=== PATIENT | female | born 1970 | race Caucasian/White ===

== ENCOUNTER 2019-01-03 12:42 | Emergency (ER) | payer OTHER ==
[~2019-01-03] VITALS: Ht 157.5 cm; Wt 125.0 kg
[~2019-01-03 12:42] MED LIST: GLIP5TAB11 PO; MULT1TAB66 PO; PARO-37 PO; PRAV20TA4 PO
[2019-01-03] MEDS ORDERED: METF-960 PO (13:13)
[2019-01-03] MEDS ORDERED: SPIR25 PO (13:13)
[2019-01-03] MEDS ORDERED: INSLAN SQ (13:13)
[2019-01-03] MEDS ORDERED: BUME1TAB17 PO (13:13)
[2019-01-03 13:20] LABS: GLUCOSE,POINT OF CARE 337 MG/DL (70-110)
[2019-01-03] MEDS ORDERED: ALBUTEROL SULFATE 2.5 MG/0.5 ML NEB SOLUTION NEB ONE ×2 (13:45→16:00)
[2019-01-03] MEDS ORDERED: IPRATROPIUM BROMIDE 0.5 MG/2.5 ML NEB SOLUTION NEB ONE (13:45)
[2019-01-03] MEDS ORDERED: PredniSONE 20 MG TABLET PO ONE (16:00)
[2019-01-03] MEDS ORDERED: ALBUTEROL SULFATE HFA 90 MCG/PUFF 8 GM INHALER IH ONE (16:45)
[2019-01-03 16:56] VITALS: BP 133/66
[2019-01-03 17:05] LABS: GLUCOSE,POINT OF CARE 209 MG/DL (70-110)
== END 2019-01-03 17:00 | disposition home or self-care (01) ==
LOC: EMS 12:42
DX: J45.909 Unspecified asthma, uncomplicated (principal); F17.210 Nicotine dependence, cigarettes, uncomplicated; F10.21 Alcohol dependence, in remission; E11.9 Type 2 diabetes mellitus without complications; E78.00 Pure hypercholesterolemia, unspecified; I10 Essential (primary) hypertension; F41.9 Anxiety disorder, unspecified; Z79.899 Other long term (current) drug therapy; Z98.51 Tubal ligation status
CPT/HCPCS: 82962; 94640; 99285; 99406; J7512; J3535